=== PATIENT | male | born 1990 | race Caucasian/White ===

== ENCOUNTER → 2018-06-08 11:45 | Outpatient (CLI) | payer OTHER, SELFPAY ==
[2018-06-08 14:38] LABS: Cholesterol 194 mg/dL (200); High Density Lipoprotein 59 mg/dL; Thyroid Stim Hormone (TSH) 0.53 uIU/mL (0.358-3.74); Triglycerides 93 mg/dL; Very Low Density Lipoprotein 19 mg/dL (5-40)
== END ==
PROVIDERS: Visit Provider Family Medicine
DX: Z00.00 Encounter for general adult medical examination without abnormal findings (principal)
CPT/HCPCS: 36415; 80061; 84443

== ENCOUNTER → 2019-03-18 11:14 | Outpatient (CLI) | payer OTHER, SELFPAY ==
[2014-07-10 00:16] VITALS: BMI 20.9
[2019-03-18 11:33] LABS: Bacteria 0 SEEN /hpf (None Seen); Mucous, Urine 0 SEEN /hpf (<or=2+); Red Blood Cells-Urine 0 SEEN /hpf (0-5); Squamous Epithelial Cells - UA 0 SEEN /hpf (0-5)
[2019-03-18 13:17] LABS: Anion Gap 8 (5-15); BUN 11 mg/dL (7-18); BUN/Creat Ratio 12.1 RATIO (10-20); Calcium,Total 9.3 mg/dL (8.5-10.1); Chloride 105 mmol/L (98-107); Creatinine, Serum 0.91 mg/dL (0.70-1.30); EST Glomerular Filtration Rate 105 mL/min (>60); Est Glom Filt Rate - Afr Amer 127 mL/min (>60); Glucose 90 mg/dL (74-106); Magnesium 2.2 mg/dL (1.6-2.6); Potassium 3.8 mmol/L (3.5-5.1); Sodium Level 140 mmol/L (136-145); Thyroid Stim Hormone (TSH) 0.95 uIU/mL (0.358-3.74)
[2019-03-18 13:44] LABS: Color, Urine Yellow (Yellow); Glucose, Dipstick Normal (Normal); Ketone-Dipstick Negative (Negative); Leukocyte Esterase-Dipstick 25 /ul (Negative); Nitrite-Dipstick Negative (Negative); Occult Blood-Urine Negative /ul (Negative); Protein-Dipstick Negative (Negative); Specific Gravity, Urine 1.015 (1.002-1.030); Urine Bilirubin Dipstick Negative (Negative); Urine Clarity Clear (Clear); Urine Urobilinogen Normal (Normal)
[2019-03-18 13:56] LABS: HIV - WCH Non-Reactive (Nonreactive); White Blood Cells 0-5 SEEN /hpf (0-5)
[2019-03-18 15:36] LABS: Chlamydia Trachomatis by PCR Negative (Negative); Neisserai gonorrhoeae by PCR Negative (Negative); Probe Check PASS; Sample Adequacy Control PASS; Specimen Processing Control PASS
[2019-03-25 03:40] LABS: Rapid Plasmin Reagin (RPR) NONREACTIVE (NONREACTIVE)
== END ==
PROVIDERS: Family Provider Family Medicine; PCP Family Medicine; Referring Provider Family Medicine; Visit Provider Family Medicine
DX: F41.1 Generalized anxiety disorder (principal); Z11.3 Encounter for screening for infections with a predominantly sexual mode of transmission
CPT/HCPCS: 36415; 80048; 81001; 83735; 84439; 84443; 86592; 86703; 87491; 87591

== ENCOUNTER 2020-05-04 18:06 | Observation (INO) | payer OTHER, SELFPAY ==
[2020-05-04] VITALS (9 sets, daily range): BP systolic 130–151; BP diastolic 66–88; PULSE 62–98; RESP 16–18; TEMP 36.6–37.3; O2SAT 97–100; BMI 21.9; BMI 22.0
--- NOTE | 2020-05-04 13:30 | CT_ITS ---
We are attempting to reach an attending provider to discuss findings. An addendum with communication details will be sent when the communication is complete. STUDY: CT ABDOMEN AND PELVIS WITH CONTRAST REASON FOR EXAM: Male, 29 years old. RLQ PAIN X 4 DAYS WITH LOOSE STOOLS, ?APPY RADIATION DOSAGE (If Supplied By Facility): CTDIvol = ( 10.03 ) mGy, DLP = ( 495.67 ) mGycm TECHNIQUE: Transaxial images were obtained from the dome of the diaphragm to the symphysis pubis with oral contrast. Oral and amp; IV 100mL Isovue-300 was administered. Sagittal and coronal images were reconstructed. Individualized dose optimization techniques were used for this CT. COMPARISON: None. FINDINGS: The visualized lung bases are unremarkable. The visualized portions of the heart are within normal limits. There is decreased attenuation of the liver consistent with steatosis. There is hepatomegaly. Normal gallbladder and extrahepatic biliary system. Normal spleen. Normal pancreas. Normal right adrenal gland. 1.9 cm mass of the left adrenal gland. Normal right kidney. Normal left kidney. Normal visualized stomach. Normal small intestine. Normal colon. In the right lower quadrant there is an inflammatory process with fat stranding. There is a markedly thickened appendix with adjacent edema. Appendix measures 1 cm across. No evidence for perforation or abscess. No definite appendicolith. Normal abdominal aorta. Normal inferior vena cava. Normal retroperitoneum. Normal urinary bladder. Normal abdominal wall. Normal osseous structures. CT/Abdomen/Pelvis WITH Contrast IMPRESSION: Findings most consistent with uncomplicated appendicitis. No evidence for perforation or abscess. Fatty liver with hepatomegaly. 1.9 cm nodule of the left adrenal gland, suggest follow-up in 1 year. Electronically Signed: Dwain Cantu MD at 16:00 EDT , Service support ,
[2020-05-04 13:37] LABS: Erythrocyte Sedimentation Rate 34 mm/hr (0-15)
[2020-05-04 13:41] LABS: Absolute Lymphocyte Count 0.83 X10^3/uL (0.83-4.51); Absolute Neutrophil Count 5.2 X10^3/uL (2.0-7.7); Basophil# 0.02 X10^3/uL; Basophil% 0.3 % (0-1); Eosinophil# 0.03 X10^3/uL; Eosinophils% 0.4 % (0-5); Hematocrit 43.3 % (40-54); Hemoglobin 14.1 g/dL (13.0-16.5); Lymphocyte # 0.83 X10^3/ul (4.0); Mean Corp Hgb Conc 32.6 g/dL (32-36); Mean Corpuscular Hgb 29.6 pg (27.0-32.0); Mean Platelet Vol. 10.8 fl (6.2-12.0); Monocyte# 0.76 X10^3/uL; NRBC Flagged by Analyzer 0 % (0-5); Neutrophil # 5.24 X10^3/uL (2.7-7.7); Neutrophil % 76.2 % (47-70); Platelet Count 211 K/mm3 (150-450); RBC Distribution Width CV 13.3 % (11.6-14.6); RBC Distribution Width SD 44.6 fl (35.1-43.9); Red Blood Count 4.76 M/mm3 (4.6-6.2); White Blood Count 6.9 K/mm3 (4.4-11.0)
[2020-05-04 13:53] LABS: ALB/GLOB Ratio 0.9 RATIO (0.9-2.4); AST(SGOT) 11 U/L (15-37); Alanine Aminotransfer ALT/SGPT 23 U/L (16-61); Albumin, Serum 3.7 g/dL (3.2-5.0); Alkaline Phosphatase 93 U/L (45-117); Anion Gap 9 (5-15); BUN 9 mg/dL (7-18); BUN/Creat Ratio 12.3 RATIO (10-20); Calcium,Total 9.3 mg/dL (8.5-10.1); Chloride 103 mmol/L (98-107); Creatinine, Serum 0.73 mg/dL (0.70-1.30); EST Glomerular Filtration Rate 134 mL/min (>60); Est Glom Filt Rate - Afr Amer 163 mL/min (>60); Globulin 4.2 g/dL (2.2-4.2); Glucose 88 mg/dL (74-106); Potassium 3.7 mmol/L (3.5-5.1); Protein, Total 7.9 g/dL (6.4-8.2); Sodium Level 138 mmol/L (136-145)
--- NOTE | 2020-05-04 16:36 | PCM.HP.STD ---
Problem List (1) Acute appendicitis Status: Acute Qualifiers: Acute appendicitis type: unspecified acute appendicitis type Qualified Code(s): K35.80 - Unspecified acute appendicitis History of Present Illness Date of Admission: 05/04/20 The patient is a 29 year old M who presented to his PCP with abdominal pain. He says his pain is been going on for couple days. No nausea or vomiting. Pain is in his lower abdomen more localized to the right side. Past Medical History Allergies No Known Allergies Allergy (Verified 07/10/14 00:15) Home Medications: Ambulatory Orders Medication Instructions Recorded Potassium Chloride [K-Dur] 20 meq PO BID #4 tablet 07/10/14 Surgical History: no surgical history Smoking Status: Never smoker - *Family History Maternal History Items: No pertinent history Review of Systems Constitutional: Denies: Anorexia, Chills, Fever Eyes: Denies: Blurred vision Cardiovascular: Denies: Chest Pain Respiratory: Denies: Cough, Pleuritic Pain, Shortness of Breath Gastrointestinal: Reports: Abdominal Pain. Denies: Hematochezia, Nausea, Melena, Vomiting Genitourinary: Denies: Dysuria Skin: Denies: Jaundice Neurological: Denies: Balance problems Hematologic/ Lymphatic: Denies: Anemia VTE Information - Inpt Only VTE Present on Admission: No VTE Mechan Device Prophylaxis: SCD's Patient Problems: Active and Suspected Problems Acute appendicitis (Acute) - Physical Exam General: Alert, Oriented x3 Neck: No JVD Lungs: Normal air movement Cardiovascular: Regular rate, Regular Rhythm Abdomen: Soft, Non-Distended, Tender - Tender in the right lower quadrant with no guarding or rebound Musculoskeletal: No Muscle Wasting Neurological: Cranial nerves II-XII grossly intact Psych/Mental Status: Normal Affect Laboratory Results 05/04/20 13:24: WBC 6.9, RBC 4.76, Hgb 14.1, Hct 43.3, MCV 91.0, MCH 29.6, MCHC 32.6, RDW Std Deviation 44.6 H, RDW Coeff of Jocelyne 13.3, Plt Count 211, MPV 10.8, Immature Gran % (Auto) 0.100, Neut % (Auto) 76.2 H, Lymph % (Auto) 12.0 L, [place] % (Auto) 11.0 H, Eos % (Auto) 0.4, Baso % (Auto) 0.3, Absolute Neuts (auto) 5.2, Absolute Lymphs (auto) 0.83, Nucleated RBC % 0, ESR 34 H 05/04/20 13:24: Sodium 138, Potassium 3.7, Chloride 103, Carbon Dioxide 26.0, Anion Gap 9, BUN 9, Creatinine 0.73, Est GFR (MDRD) Af Amer 163, Est GFR (MDRD) Non-Af 134, BUN/Creatinine Ratio 12.3, Glucose 88, Calcium 9.3, Total Bilirubin 0.30, AST 11 L, ALT 23, Alkaline Phosphatase 93, C-React Prot Ext Range 88.70 H, Total Protein 7.9, Albumin 3.7, Globulin 4.2, Albumin/Globulin Ratio 0.9 Clinical Impression(s) from Imaging Studies Abdomen/Pelvis CT 05/04/20 13:30 IMPRESSION: Findings most consistent with uncomplicated appendicitis. No evidence for perforation or abscess. Fatty liver with hepatomegaly. 1.9 cm nodule of the left adrenal gland, suggest follow-up in 1 year. Electronically Signed: Dwain Cantu MD at 16:00 EDT , Service support , ADDENDUM: 05/04/20 1613 IMPRESSION: Findings most consistent with uncomplicated appendicitis. No evidence for perforation or abscess. Fatty liver with hepatomegaly. 1.9 cm nodule of the left adrenal gland, suggest follow-up in 1 year. N.B. : The above information has been verbally conveyed by Dwain Cantu MD to Dr. Lillian MD, on 05/04/2020 16:06:01 (ET). Electronically Signed: Dwain Cantu MD at 16:00 EDT , Service support , Current Medications Piperacillin Sod/Tazobactam (Sod 3.375 gm/ Sodium Chloride) 50 mls @ 12.5 mls/hr IV Q8 CAMILO Assessment/Plan All Active Problems Acute appendicitis (Acute) 29-year-old male with acute appendicitis 1. Patient has acute appendicitis per CT scan and a normal white count with left shift. I discussed acute appendicitis with the patient in detail. I discussed laparoscopic appendectomy with him as well. I discussed the risks including but not limited to bleeding, infection, injury to surrounding organ such as the bowel, ureter, bladder. Patient understands the risks and is well to proceed with surgery. We will order antibiotics and pre-surgery. We discussed the current risks associated with COVID-19. While it is understood that there is a community spread of COVID-19, the risk of flaca COVID-19 while at [facility] ([facility]) is very low; however, the risk cannot be completely mitigated because of the community spread of the disease. We discussed in detail the risk of exposure to and/or potential harm posed by the COVID-19 virus with having a surgery/procedure at this time versus the risk of delaying the surgery/procedure. It is not possible to know either the risk of delaying the surgery or procedure or chance of getting an infection with perfect accuracy, but a joint decision was made to proceed at this time with the scheduled surgery/procedure as indicated on the consent form. Patient was notified that we will need to comply with any screening or testing [facility] wishes to perform or that surgery may be delayed for any positive results. Leroy Pollock MD Pager: [facility] [address] [place] [address] [address] [place] [address] Office:
--- NOTE | 2020-05-04 17:00 | APP_PTH ---
PATIENT: LAURY ANDRE LOC: MS3 U#:[id number] AGE/SX: 29/M ROOM: [facility] [place] RE05/04/[address]: Dr. Leroy Pollock MD : 1990 BED: 1 DIS: 05/05/2020 SPEC #: [id number] RECD: 05/07/20 07:22 STATUS: CECILY HWANG #: [id number] VITALIY: 05/04/20 17:[address]: Leroy Pollock DEPT: SURGICAL PATHOLOGY RECD BY: Amy Tsang ENTERED: 05/07/20 10:16 SP TYPE: APPENDIX OTHR DR: Dr. Damien Cabello MD Tissues: Appendix, NOS Procedures: Surgery Specimen Level III HEADER OPERATION: Laparoscopic appendectomy PRE-OP DIAGNOSIS: Acute appendicitis TISSUE SUBMITTED: Appendix MICROSCOPIC DIAGNOSIS Appendix, appendectomy: Minimal acute appendicitis. Moderate acute and chronic periappendicitis with reactive changes. See comment. SJ:lilly 05/09/20 COMMENT The entire appendix is examined. Clinical correlation and appropriate follow up are necessary. Case has been reviewed in consultation with Dr. Johnson who concurs with the above diagnosis. IDC:AM MICROSCOPIC DESCRIPTION Slides are reviewed. GROSS DESCRIPTION Received is one container labeled with the patient's name and designated appendix. The specimen consists of a C-shaped appendix measuring 8 cm in length and up to 1 cm in diameter. The serosa is congested. No obvious perforation is identified. The lumen contains liquified fecal material. No fecalith is identified. Pastry Baker sections are submitted in one cassette. / BECK:lilly 05/07/20 The rest of the appendix is submitted in three more cassettes, 2-4. / BECK:lilly 05/08/20 TC:2 CPT: 95107
[2020-05-04] MEDS: Bupiv/Epi 0.25% 30 ML Vial (17:34)
--- NOTE | 2020-05-04 18:08 | OP.PCM_ITS ---
Problem List (1) Acute appendicitis Status: Acute Qualifiers: Acute appendicitis type: unspecified acute appendicitis type Qualified Code(s): K35.80 - Unspecified acute appendicitis Report of Operation Date of Procedure: 05/04/20 Pre-Operative Diagnosis: Acute appendicitis Post-Operative Diagnosis: Same Surgery/Procedure Performed:: Laparoscopic appendectomy Description of Surgical Findings:: Inflamed appendix, wound class III Specimen's removed: Appendix Description of Procedure: The patient was brought into the operating room and general anesthesia was induced. The left arm was tucked and the abdomen was prepped and draped in usual sterile fashion. A small midline incision was made superior to the umbilicus and deepened to the level of the fascia. The fascia was elevated and incised. The peritoneum was also elevated and incised. A finger sweep was performed and a balloon trocar was placed into the abdomen and inflated. The abdomen was insufflated to 15 mmHg and the camera was inserted and the abdomen was inspected for any injuries upon entering the abdomen. There were none. The patient was placed in Trendelenburg position and a 5 mm ports placed in the left lower quadrant and suprapubic areas under direct visualization. Next using atraumatic bowel graspers the appendix was identified. The appendix was grasped and elevated and Enseal was used to take down the mesoappendix. A stapler was used to come across the base of the appendix. The appendix was then placed in Endo Catch bag and removed through the umbilical incision. The staple line was inspected and found to be hemostatic and intact. The 2 5 mm ports are removed under direct visualization. The balloon trocar was deflated and removed and all the air was removed from the abdomen. The umbilical incision fascia was closed with an 0 Vicryl [id number] suture. The incisions were then irrigated with saline and dried. Local anesthetic was injected into the incision sites. The skin incisions were then closed with interrupted 4-0 Monocryl suture and Steri- Strips. Bandages were applied and the patient was awoken and taken to PACU in stable condition. Patient tolerated the procedure well. - Admit VTE Documentation VTE Mechan Device Prophylaxis: SCD's
[2020-05-05] MEDS: 0.9% Normal Saline 1,000 ML 60 ML IV (00:51)
[2020-05-05 05:45] VITALS: BP 120/68; PULSE 65; RESP 18; TEMP 37.1; O2SAT 100
[2020-05-05] MEDS: Morphine 2 MG/ML Syringe IV (06:15)
--- NOTE | 2020-05-05 07:38 | PCM.PN.SRG ---
Patient Problems: Active and Suspected Problems Acute appendicitis (Acute) Subjective: Patient is doing well and tolerating a diet. - Physical Exam Vitals/I&O's: Vital Signs Temp Pulse Resp BP Pulse Ox 98.7 F 65 18 120/68 100 05/05/20 05:45 05/05/20 05:45 05/05/20 05:45 05/05/20 05:45 05/05/20 05:45 Oxygen Delivery Method Room Air Weight: 162 lb 3.105 oz Body Mass Index (BMI) 21.9 Intake and Output for Last 24 Hours 05/03/20 05/04/20 05/05/20 23:59 23:59 23:59 Intake Total 66.875 / 266.875 350 / 350 Output Total 950 / 950 Balance 66.875 / -233.125 -600 / -600 General: Alert, Oriented x3 Lungs: Normal air movement Cardiovascular: Regular rate, Regular Rhythm Abdomen: Soft, Non Tender, Non-Distended Laboratory Results 05/04/20 13:24: WBC 6.9, RBC 4.76, Hgb 14.1, Hct 43.3, MCV 91.0, MCH 29.6, MCHC 32.6, RDW Std Deviation 44.6 H, RDW Coeff of Jocelyne 13.3, Plt Count 211, MPV 10.8, Immature Gran % (Auto) 0.100, Neut % (Auto) 76.2 H, Lymph % (Auto) 12.0 L, Power % (Auto) 11.0 H, Eos % (Auto) 0.4, Baso % (Auto) 0.3, Absolute Neuts (auto) 5.2, Absolute Lymphs (auto) 0.83, Nucleated RBC % 0, ESR 34 H 05/04/20 13:24: Sodium 138, Potassium 3.7, Chloride 103, Carbon Dioxide 26.0, Anion Gap 9, BUN 9, Creatinine 0.73, Est GFR (MDRD) Af Amer 163, Est GFR (MDRD) Non-Af 134, BUN/Creatinine Ratio 12.3, Glucose 88, Calcium 9.3, Total Bilirubin 0.30, AST 11 L, ALT 23, Alkaline Phosphatase 93, C-React Prot Ext Range 88.70 H, Total Protein 7.9, Albumin 3.7, Globulin 4.2, Albumin/Globulin Ratio 0.9 Current Medications Acetaminophen (Tylenol) 650 mg PO Q4H PRN PRN PRN Reason: Pain or Fever Bupropion HCl (Wellbutrin Xl) 150 mg PO DAILY [facility] Sodium Chloride () 1,000 mls @ 60 mls/hr IV .[id number] [facility] Last Admin: 05/05/20 00:51 Dose: 60 mls/hr Documented by: Morphine Sulfate () 2 - 4 mg IV Q2H PRN PRN PRN Reason: Pain Score 4-10/10 Last Admin: 05/05/20 06:15 Dose: 2 mg Documented by: Morphine Sulfate () 2 - 4 mg IV Q2H PRN PRN PRN Reason: Pain Score 4-10/10 Ondansetron HCl (Zofran) 4 mg IV Q6H PRN PRN PRN Reason: NAUSEA Oxycodone HCl (Oxyir) 5 - 10 mg PO Q4H PRN PRN PRN Reason: Pain Score 4-10/10 Sodium Chloride () 10 - 40 ml IV UD PRN PRN Reason: SALINE FLUSH Medical Necessity - Tobacco Use Smoking Status: Current every day smoker Assessment/Plan All Active Problems Acute appendicitis (Acute) 29-year-old male status post laparoscopic appendectomy for acute appendicitis 1. Patient is doing well today. If he tolerates a diet I will discharge him home. I advised him to follow-up in 1 to 2 weeks and take ibuprofen/Tylenol for pain. Leroy Pollock MD Pager: [facility] [address] [place] [address], [address] [place] [address] Office:
--- NOTE | 2020-05-05 07:39 | DCINST_ITS ---
Discharge Diet: Light diet - advance as tolerated Discharge Activity: May Shower Lifting Restrictions: 20 lbs for 2 weeks Call your doctor if your incision/area has: Continuous Slow Oozing, Sudden Increased Bleeding, Increased Pain/ Swelling, Increased Redness, Foul Smelling Discharge Call your doctor if you observe: Fever of 101 or Higher Suture Line Care: Avoid Pulling/Pushing, Avoid Pinching/Bending Additional Dressing/Incision Instructions:: Keep dressing clean and dry. Change or remove dressing in 1 day. Leave steri strips for 1 week. May protect with a gauze bandaid. Medications to take at Discharge Bupropion HCl [Bupropion Xl] 150 mg PO DAILY 05/04/20 Acetaminophen [Tylenol Tablet] 650 mg PO Q4H PRN PRN tablet 05/05/20 Allergies/Adverse Reactions: Allergies No Known Allergies Allergy (Verified 07/10/14 00:15) Primary Care Physician: Damien Cabello MD [Primary Care Provider] - Test Results: Test results from this visit will be discussed in further detail at your follow- up appointment, if applicable. Please Follow Up With: Leroy Pollock MD When: Please call to schedule 2 week follow up appointment. [phone]
[2020-05-05 08:13] VITALS: BP 124/66; PULSE 74; RESP 16; TEMP 36.9; O2SAT 100
--- NOTE | 2020-05-05 08:13 | NURSING ---
Ordered breakfast. Saline lock out at this time.
--- NOTE | 2020-05-05 08:19 | NURSING ---
Ordered breakfast at this time.
--- NOTE | 2020-05-05 09:55 | NURSING ---
pt ate breakfast, finished at 0855. No Nausea, No abd pain. PT only wants to take tylenol when he goes home. Pt VS stable. pt walked jernigan.
== END 2020-05-05 10:00 | disposition home or self-care (01) ==
LOC: SDC 05-07 09:40 → MS3 05-07 09:40
PROVIDERS: Admitting Provider Surgery; PCP Family Medicine; Referring Provider Family Medicine; Visit Provider Surgery
PROC: 0DTJ4ZZ Resection of Appendix, Percutaneous Endoscopic Approach (ICD-10-PCS; CPT 44970; principal; 2020-05-04 17:00)
DX: K35.80 Unspecified acute appendicitis (principal)
CPT/HCPCS: 44970; 36415; 74177; 80053; 85025; 85652; 86140; 88304; 96374; 99218; 99406; J7030; J7120; Q9967; A4216; C1760; G0378; G0379; J2405

== ENCOUNTER → 2020-10-23 16:48 | Outpatient (CLI) | payer OTHER, SELFPAY ==
[2020-05-04 19:50] VITALS: BMI 21.9
== END ==
PROVIDERS: PCP Family Medicine; Visit Provider Registered Nurse
DX: Z20.828 Contact with and (suspected) exposure to other viral communicable diseases (principal)
CPT/HCPCS: 87635; U0003

== ENCOUNTER → 2022-05-01 | Outpatient (CLI) | payer BC, SELFPAY ==
[2022-05-01 15:41] LABS: ALB/GLOB Ratio 1.3 RATIO (0.9-2.4); AST(SGOT) 10 U/L (15-37); Alanine Aminotransfer ALT/SGPT 27 U/L (16-61); Albumin, Serum 4.1 g/dL (3.2-5.0); Alkaline Phosphatase 65 U/L (45-117); Anion Gap 5 (5-15); BUN 9 mg/dL (7-18); BUN/Creat Ratio 10.7 RATIO (10-20); CRP < 2.90 mg/L (0.0-3.0); Calcium,Total 9.4 mg/dL (8.5-10.1); Chloride 106 mmol/L (98-107); Creatinine, Serum 0.84 mg/dL (0.70-1.30); EST Glomerular Filtration Rate 113 mL/min (>60); Est Glom Filt Rate - Afr Amer 136 mL/min (>60); Globulin 3.2 g/dL (2.2-4.2); Glucose 126 mg/dL (74-106); Potassium 3.5 mmol/L (3.5-5.1); Protein, Total 7.3 g/dL (6.4-8.2); Sodium Level 137 mmol/L (136-145); Thyroid Stim Hormone (TSH) 0.28 uIU/mL (0.358-3.74)
[2022-05-01 17:56] LABS: Absolute Lymphocyte Count 0.79 X10^3/uL (0.83-4.51); Absolute Neutrophil Count 3.4 X10^3/uL (2.0-7.7); Basophil# 0.03 X10^3/uL; Basophil% 0.6 % (0-1); Eosinophil# 0.06 X10^3/uL; Eosinophils% 1.3 % (0-5); Hematocrit 45.2 % (40-54); Hemoglobin 15.4 g/dL (13.0-16.5); Lymphocyte # 0.79 X10^3/ul (0.83-4.51); Lymphocyte % 16.9 % (19-41); Mean Corp Hgb Conc 34.1 g/dL (32-36); Mean Corpuscular Hgb 29.6 pg (27.0-32.0); Mean Corpuscular Volume 86.8 fL (80-94); Mean Platelet Vol. 11.5 fl (6.2-12.0); Monocyte# 0.35 X10^3/uL; Monocyte% 7.5 % (0-10); NRBC Flagged by Analyzer 0 % (0-5); Neutrophil # 3.43 X10^3/uL (2.7-7.7); Neutrophil % 73.5 % (47-70); Platelet Count 239 K/mm3 (150-450); RBC Distribution Width CV 13.4 % (11.6-14.6); RBC Distribution Width SD 42.2 fl (35.1-43.9); Red Blood Count 5.21 M/mm3 (4.6-6.2); White Blood Count 4.7 K/mm3 (4.4-11.0)
[2022-05-01 18:29] LABS: Erythrocyte Sedimentation Rate 4 mm/hr (0-20)
[2022-05-02 14:12] LABS: T4 Free Direct 1.16 ng/dL (0.76-1.46)
== END | disposition home or self-care (01) ==
LOC: MTLAB 12:36
PROVIDERS: PCP Family Medicine; Referring Provider Family Medicine; Visit Provider Family Medicine
DX: R19.8 Other specified symptoms and signs involving the digestive system and abdomen (principal); K27.9 Peptic ulcer, site unspecified, unspecified as acute or chronic, without hemorrhage or perforation
CPT/HCPCS: 36415; 80053; 84439; 84443; 85025; 85652; 86140

== ENCOUNTER → 2022-05-02 | Outpatient (CLI) | payer BC, SELFPAY ==
[2022-05-15 16:37] LABS: H. PYLORI STOOL AG Negative (Negative); Pancreatic Elastase, Fecal 268 (>200)
== END | disposition home or self-care (01) ==
PROVIDERS: PCP Family Medicine; Referring Provider Family Medicine; Visit Provider Family Medicine
DX: R19.8 Other specified symptoms and signs involving the digestive system and abdomen (principal); K27.9 Peptic ulcer, site unspecified, unspecified as acute or chronic, without hemorrhage or perforation
CPT/HCPCS: 82653; 83986

== ENCOUNTER → 2022-07-25 | Outpatient (CLI) | payer BC, SELFPAY ==
[2022-07-25 15:56] LABS: Cholesterol 227 mg/dL (200); High Density Lipoprotein 69 mg/dL; T4 Free Direct 0.92 ng/dL (0.76-1.46); Thyroid Stim Hormone (TSH) 0.46 uIU/mL (0.358-3.74); Triglycerides 98 mg/dL; Very Low Density Lipoprotein 20 mg/dL (5-40)
[2022-07-29 13:38] LABS: Thyroglobulin Antibody < 1.0 IU/mL (0.0-0.9); Thyroid Peroxidase AB 9 IU/mL (0-34)
== END | disposition home or self-care (01) ==
PROVIDERS: PCP Family Medicine; Referring Provider Family Medicine; Visit Provider Family Medicine
DX: Z00.00 Encounter for general adult medical examination without abnormal findings (principal); R79.89 Other specified abnormal findings of blood chemistry
CPT/HCPCS: 36415; 80061; 84439; 84443; 86376; 86800

== ENCOUNTER → 2022-08-29 | Outpatient (CLI) | payer BC, SELFPAY ==
[2022-08-29 10:55] LABS: Lyme Ab Screen Interpretation REF LAB
[2022-08-29 11:38] LABS: Erythrocyte Sedimentation Rate 7 mm/hr (0-20)
[2022-08-29 11:49] LABS: Hemoglobin A1c 5.2 % (3.8-5.6)
[2022-08-29 12:14] LABS: ALB/GLOB Ratio 1.2 RATIO (0.9-2.4); AST(SGOT) 14 U/L (15-37); Alanine Aminotransfer ALT/SGPT 27 U/L (16-61); Albumin, Serum 4.4 g/dL (3.2-5.0); Alkaline Phosphatase 80 U/L (45-117); Anion Gap 7 (5-15); BUN 10 mg/dL (7-18); BUN/Creat Ratio 12.4 RATIO (10-20); CRP < 2.90 mg/L (0.0-3.0); Calcium,Total 9.4 mg/dL (8.5-10.1); Chloride 108 mmol/L (98-107); Creatinine, Serum 0.81 mg/dL (0.70-1.30); EST Glomerular Filtration Rate 117 mL/min (>60); Est Glom Filt Rate - Afr Amer 142 mL/min (>60); Globulin 3.6 g/dL (2.2-4.2); Glucose 97 mg/dL (74-106); Potassium 3.9 mmol/L (3.5-5.1); Sodium Level 139 mmol/L (136-145)
[2022-09-01 16:09] LABS: Endomysial Antibody IgA Negative (Negative)
[2022-09-01 18:49] LABS: Immunoglobulin A 145 mg/dL (90-386); t-Transglutaminase IgA <2 U/mL (0-3)
[2022-09-02 14:29] LABS: Anti-Centromere B Ab <0.2 AI (0.0-0.9); Anti-Chromatin <0.2 AI (0.0-0.9); Anti-Jo <0.2 AI (0.0-0.9); Anti-Scleroderma-70 AB <0.2 AI (0.0-0.9); RNP Ab <0.2 AI (0.0-0.9); SJOGREN'S Anti-SS-A test < 0.2 AI (0.0-0.9); SJOGREN'S Anti-SS-B test < 0.2 AI (0.0-0.9); Smith Ab <0.2 AI (0.0-0.9)
[2022-09-02 16:08] LABS: Anti-dsDNA Ab <1 IU/mL (0-9)
[2022-09-07 13:06] LABS: Albumin 4.5 g/dL (2.9-4.4); Alpha-1-Globulins 0.2 g/dL (0.0-0.4); Alpha-2-Globulins 0.7 g/dL (0.4-1.0); Cytoplasmic Ab (C-ANCA) <1:20 titer (Neg:<1:20); Immunoglobulin A 149 mg/dL (90-386); Immunoglobulin G 783 mg/dL (603-1613); Immunoglobulin M 137 mg/dL (20-172); PROEL- TOTAL PROTEIN 7.5 g/dL (6.0-8.5)
[2022-09-08 17:45] LABS: CMV Antibody IgG < 0.60 U/mL (0.00-0.59); EBV Acute VCA IgM < 36.0 U/mL (0.0-35.9); EBV Nuclear Antigen IgG 83.3 U/mL (0.0-17.9); Immunoglobulin E 28 IU/mL (6-495); Lyme Scn Total Ab w/Rflx Negative (Negative); Perinuclear Ab (P-ANCA) <1:20 titer (Neg:<1:20)
== END | disposition home or self-care (01) ==
LOC: LAB 10:51
PROVIDERS: PCP Family Medicine; Referring Provider Internal Medicine Gastroenterology; Visit Provider Internal Medicine Gastroenterology
DX: R19.7 Diarrhea, unspecified (principal)
CPT/HCPCS: 36415; 80053; 82784; 82785; 83036; 83516; 84165; 85652; 86140; 86225; 86235; 86255; 86256; 86334; 86618; 86644; 86664; 86665

== ENCOUNTER → 2022-09-02 | Outpatient (CLI) | payer BC, SELFPAY ==
[2022-09-16 18:33] LABS: Calprotectin, Stool <16 ug/g (0-120); Fats, Neutral Normal (.); Fats, Total Normal (.)
== END | disposition home or self-care (01) ==
LOC: LAB 16:41
PROVIDERS: PCP Family Medicine; Visit Provider Internal Medicine Gastroenterology
DX: R19.7 Diarrhea, unspecified (principal); K58.9 Irritable bowel syndrome, unspecified
CPT/HCPCS: 82705; 83630; 83993; 87493; 87506

== ENCOUNTER → 2022-12-03 | Outpatient (CLI) | payer BC, SELFPAY ==
--- NOTE | 2022-12-03 12:35 | NM_ITS ---
CLINICAL: 32-year-old male with history of abdominal pain and bloating. SEMI-SOLID PHASE 99m Tc SULFUR COLLOID GASTRIC EMPTYING STUDY COMPARISON: None available FINDINGS: The patient was administered 1.0 mCi of 99m Tc sulfur colloid mixed with oatmeal and consumed per os. Image acquisitions in the anterior-posterior projections were obtained for 60 minutes. There is prompt visualization of the stomach. There is no gastroesophageal reflux identified. The T ? linear fit was calculated to be 42.10 minutes, (Normal: 12-56 minutes). NM/Gastric Emptying Study IMPRESSION: 1. NORMAL 99m Tc sulfur colloid semi-solid phase (oatmeal) gastric emptying imaging examination. A. There is normal and preserved semi-solid phase gastric emptying compared to normal controls. (Jean Marie et al, J Nucl Med Tech 38: 186, 2010). Electronically Signed: Alfa King, at 19:57 EST ,
== END | disposition home or self-care (01) ==
PROVIDERS: PCP Family Medicine; Referring Provider Internal Medicine Gastroenterology; Visit Provider Internal Medicine Gastroenterology
DX: K58.9 Irritable bowel syndrome, unspecified (principal)
CPT/HCPCS: 78264; A9541

== ENCOUNTER → 2022-12-05 | Outpatient (CLI) | payer BC, SELFPAY ==
--- NOTE | 2022-12-05 09:39 | US_ITS ---
STUDY: ABDOMINAL ULTRASOUND - RIGHT UPPER QUADRANT REASON FOR VISIT: Male, 32 years old hepatomegaly TECHNIQUE: Ultrasound evaluation of the right upper quadrant was performed with real-time and static cohen-scale imaging. TECHNICAL QUALITY: Adequate. COMPARISON: None. FINDINGS: Liver: The liver measures 17.2 cm. There is normal echogenicity of the liver. The bile ducts are within normal limits. There is hepatic color flow. The direction of portal flow is hepatopetal. There is no demonstrated mass lesion. Gallbladder: Normal distended gallbladder. The gallbladder wall measures 2 mm. There is a negative sonographic Dominguez''s sign. There is no pericholecystic fluid. There are no gallstones. Common Bile Duct (C.B.D.): The common bile duct measures 3 mm. Pancreas: Normal size of the head, body and tail of the pancreas. There is normal echogenicity of the pancreas. There is no demonstrated pancreatic mass or cyst. Right Kidney: Normal size of the right kidney. The right kidney measures 11.5 cm x 5.7 cm x 4.9 cm. Normal renal cortex. The right cortex measures 1.5 cm. There is no demonstrated renal mass or cyst. There is no right hydronephrosis. US/Abdomen Limited IMPRESSION: Normal right upper quadrant ultrasound examination. Electronically Signed: Harsha Jackson MD at 13:57 EST ,
--- NOTE | 2022-12-05 09:39 | US_ITS ---
STUDY: ABDOMINAL ULTRASOUND - ELASTOGRAPHY REASON FOR VISIT: Male, 32 years old. IBS. TECHNIQUE: Liver stiffness measurements were obtained on a [employer]se RS 85 ultrasound machine using a CA 1-7 probe following the SRU guidelines. 3 measurements were obtained using a 2-D-SWE method. The IQR/M was 16% suggesting a quality data set. TECHNICAL QUALITY: Adequate. COMPARISON: Comparison is made with prior study done earlier in the day. FINDINGS: Liver: There is no demonstrated mass lesion. Median liver stiffness measured 4.6 kPa. US/Elastography Parenchyma/Organ IMPRESSION: Liver stiffness measures 4.6 kPa compatible with F0-F1 (Normal to mild liver fibrosis) Metavir score. Electronically Signed: Harsha Jackson MD at 13:58 EST ,
== END | disposition home or self-care (01) ==
PROVIDERS: PCP Family Medicine; Visit Provider Internal Medicine Gastroenterology
DX: K58.9 Irritable bowel syndrome, unspecified (principal)
CPT/HCPCS: 76705; 76981

== ENCOUNTER → 2023-01-13 | Outpatient (CLI) | payer BC, SELFPAY ==
[2023-01-13 15:30] LABS: Hematocrit 48.1 % (40-54); Mean Corp Hgb Conc 33.3 g/dL (32-36); Mean Corpuscular Hgb 29.5 pg (27.0-32.0); Mean Corpuscular Volume 88.6 fL (80-94); Mean Platelet Vol. 11.4 fl (6.2-12.0); Platelet Count 262 K/mm3 (150-450); RBC Distribution Width CV 13.2 % (11.6-14.6); Red Blood Count 5.43 M/mm3 (4.6-6.2); White Blood Count 4.6 K/mm3 (4.4-11.0)
[2023-01-13 16:37] LABS: ALB/GLOB Ratio 1.4 RATIO (0.9-2.4); AST(SGOT) 14 U/L (15-37); Alanine Aminotransfer ALT/SGPT 28 U/L (16-61); Albumin, Serum 4.5 g/dL (3.2-5.0); Alkaline Phosphatase 74 U/L (45-117); Anion Gap 9 (5-15); BUN 10 mg/dL (7-18); BUN/Creat Ratio 12.6 RATIO (10-20); Chloride 103 mmol/L (98-107); Creatinine, Serum 0.79 mg/dL (0.70-1.30); EST Glomerular Filtration Rate 120 mL/min (>60); Est Glom Filt Rate - Afr Amer 145 mL/min (>60); Globulin 3.3 g/dL (2.2-4.2); Glucose 96 mg/dL (74-106); Lipase 88 U/L (73-393); Potassium 3.7 mmol/L (3.5-5.1); Protein, Total 7.8 g/dL (6.4-8.2); Sodium Level 136 mmol/L (136-145)
[2023-01-15 18:49] LABS: Haptoglobin 168 mg/dL (17-317)
[2023-01-18 01:06] LABS: Beef <0.10 kU/L (Class 0); Corn <0.10 kU/L (Class 0); Egg, Whole <0.10 kU/L (Class 0); Milk (Cow) <0.10 kU/L (Class 0); Peanut <0.10 kU/L (Class 0); Pork <0.10 kU/L (Class 0); Soybean <0.10 kU/L (Class 0); Wheat <0.10 kU/L (Class 0)
[2023-01-18 14:04] LABS: Chocolate <0.10 kU/L (Class 0)
== END | disposition home or self-care (01) ==
LOC: MTLAB 12:48
PROVIDERS: PCP Family Medicine; Referring Provider Family Medicine; Visit Provider Family Medicine
DX: R19.4 Change in bowel habit (principal); R92.1 Mammographic calcification found on diagnostic imaging of breast
CPT/HCPCS: 36415; 80053; 83010; 83690; 85027; 86003; 86005

== ENCOUNTER → 2023-01-14 | Outpatient (CLI) | payer BC, SELFPAY ==
[2023-01-21 15:10] LABS: Pancreatic Elastase, Fecal 277 (>200)
== END | disposition home or self-care (01) ==
LOC: LAB 16:24
PROVIDERS: PCP Family Medicine; Visit Provider Family Medicine
DX: R19.4 Change in bowel habit (principal); K92.1 Melena
CPT/HCPCS: 82653; 87177; 87209

== ENCOUNTER → 2023-01-15 | Outpatient (CLI) | payer BC, SELFPAY | END | disposition home or self-care (01) | LOC: LABSPEC 16:10 | PROVIDERS: PCP Family Medicine; Visit Provider Family Medicine | DX: R19.4 Change in bowel habit (principal); K92.1 Melena | CPT/HCPCS: 87177; 87209 ==

== ENCOUNTER → 2023-01-19 | Outpatient (CLI) | payer BC, SELFPAY | END | disposition home or self-care (01) | LOC: LAB 16:12 | PROVIDERS: PCP Family Medicine; Referring Provider Family Medicine; Visit Provider Family Medicine | DX: R19.4 Change in bowel habit (principal); K92.1 Melena | CPT/HCPCS: 87177; 87209 ==

== ENCOUNTER 2023-02-20 08:56 | Day surgery (SDC) | payer BC, SELFPAY ==
[2023-02-20 09:12] VITALS: BP 142/81; PULSE 91; RESP 16; TEMP 36.8; O2SAT 100; BMI 23.3
[2023-02-20] MEDS: Lactated Ringers 1,000 ML 15 ML IV (09:14)
--- NOTE | 2023-02-20 09:51 | HP.PCM_ITS ---
History and Physical Date of Admission: 02/20/23 Intake Vital Signs ? 05/01/2212:33 01/28/2315:05 Height 5 ft 11 in 6 ft Weight: ? 179 lb 2 oz BMI ? 24.3 BP ? 134/81 H Blood Pressure Location ? Rt radial Position ? Sitting Respiration ? 16 Pulse ? 80 Pulse Source ? Monitor Pulse Oximetry (%) ? 99 Oxygen Delivery Method ? room air Intake Visit Reasons:?UPPER & LOWER FOR LOOSE STOOL & RECURRENT MELENA Chief Complaint: Loose stool/recurrent melena Senior Clinical Data Manager Required: No Is patient in pain?: No Allergies No Known Allergies Allergy (Verified 01/28/23 15:07) Medications acetaminophen 325 mg tablet 650 mg PO Q4H PRN PRN Pain Or Fever 05/05/20 [Rx Confirmed 01/28/23] PFSH Medical History?(Updated 01/28/23 @ 15:[address] Leroy Pollock MD) Acute appendicitis Change in bowel function Diarrhea Hemorrhoids Herpes simplex infection of eye Nausea Peptic ulcer disease Surgical History?(Updated 01/28/23 @ 15:03 by Helen Rm) History of appendectomy (~04/2020) Family History?(Updated 01/28/23 @ 15:04 by Helen Rm) Grandfather Heart disease Social History?(Updated 01/28/23 @ 15:05 by Helen Rm) Smoking Status:? Heavy Smoker (>10/day) alcohol intake:? current details:? 5-6 beers/day HPI HPI HPI: Patient is a 32-year-old male here with several issues.? Patient has not been seen by GI but has never had scopes.? He says that occasionally he has very dark stools which are loose.? He says that if he has normal stools they are flat and wide.? He also has reflux.? He has been started on a PPI. ROS General General: No weight change, appetite, fatigue, colon cancer, breast cancer or weakness HEENT HEENT: No difficulty swallowing, eye injury, eye surgery, swollen glands or hoarseness Endo Endocrine: No thyroid disease, diabetes mellitus, thyroid cancer, Hair loss, heat intolerance or cold intolerance Skin Skin: No rash or changing moles Breast Breast: No left breast lump, right breast lump, nipple discharge, breast pain, abnormal mammogram, abnormal US or breast enlargement Musc Musculoskeletal: No back problems, arthritis, rheumatoid arthritis, gout or joint pain Cardio Cardiovascular: No murmur, pacemaker, heart disease, atrial fibrillation, high blood pressure, heart attack, heart stent, palpitations, shortness of breat with exertion or chest pain Psych Psychiatric: Yes anxiety; No depression or hearing voices Resp Respiratory: No shortness of breath, No sleep apnea, No cough, No COPD, No asthma, No emphysema and No wheezing Gastro Gastrointestinal: Yes abdominal pain, Yes nausea or vomiting, Yes diarrhea, Yes constipation, No blood in stool, Yes acid reflux, Yes hemorrhoids, No ulcers, No gallbladder problem and Yes black,tarry stools Jeremy Hematologic: No blood thinners, No blood disorders, No bleeding, No anemia and No blood clots Neuro Neurologic: No system reviewed and no additional complaints, except as documented, No as per HPI, No abnormal gait, No abnormal hearing, No abnormal movements, No abnormal speech, No behavioral changes, No burning sensations, No confusion, No convulsions, No disequilibrium, No dizziness, No localized weakness, No frequent falls, No headache(s), No lack of coordination, No loss of vision, No memory loss, No numbness, No other visual disturbances, No radicular pain, No restless legs, No sensory deficit, No syncope, No tingling, No tremor(s ), No weakness and No other Exam Const General: cooperative Orientation: alert and oriented x3 HENMT Head: normal to inspection Neck Neck: normal visual inspection and full ROM Chest Chest palpation & inspection: normal inspection of the chest Resp Effort & Inspection: normal respiratory effort Auscultation: clear to auscultation bilaterally Cardio Rate: regular rate Rhythm: regular rhythm GI Inspection: non-distended Palpation: soft and nontender Skin General: no rashes or lesions noted Neuro General: patient alert and patient oriented x3 Extrem General: full ROM Psych Appearance: grossly normal Mental Status: mental status grossly normal Assessment and Plan Assessment and Plan (1) GERD (gastroesophageal reflux disease): ?Status:?Acute ?Qualifiers: ?Esophagitis presence:?esophagitis presence not specified? Qualified Code(s):?K21.9 - Gastro-esophageal reflux disease without esophagitis (2) Melena: ?Status:?Acute ? ? ? Orders: Orders Colonoscopy Today ? ? EGD Today ? ? Plan The patient has been having GERD and black tarry stools.? Patient was seen by GI but no scopes were performed.? Patient was sent here for EGD and colonoscopy.? I discussed both with him. I explained endoscopy in detail to the patient.? I explained the risks including but not limited to stroke or heart attack with anesthesia, perforation of the GI tract, bleeding, infection.? I explained that any of these could necessitate further emergency surgery.? The patient understands and all questions were answered sufficiently.? The patient wishes to proceed with procedure. Leroy Pollock MD Pager: [facility] [address] [place] [address], [address] [place] [address] Office: I have examined the patient and the H&P has been reviewed. There are no clinical changes since date of exam.
--- NOTE | 2023-02-20 10:15 | EGD_PTH ---
PATIENT: LAURY ANDRE LOC: EN U#:[id number] AGE/SX: 32/M ROOM: RE02/20/[address]: Dr. Leroy Pollock MD : 1990 BED: DIS: 02/20/2023 SPEC #: [id number] RECD: 02/20/23 12:19 STATUS: CECILY REDee Dee #: [id number] VITALIY: 02/20/23 10:[address]: Leroy Pollock DEPT: SURGICAL PATHOLOGY RECD BY: Leandra Mills ENTERED: 02/20/23 12:20 SP TYPE: EGD BIOPSY OTHR DR: Dr. Damien Cabello MD Tissues: A - Gastric mucous membrane B - Stomach, NOS Procedures: Special Stain Group II Surgery Specimen Level IV Alcian Blue/PAS (control) HEADER OPERATION: Colonoscopy, EGD (MAC), biopsy PRE-OP DIAGNOSIS: Melena, GERD TISSUE SUBMITTED: A ? Antral biopsy ? H. pylori and path, B - Gastroesophageal junction biopsy MICROSCOPIC DIAGNOSIS A. Antral biopsy: Mild gastritis. See microscopic description and comment. B. Gastroesophageal junction, biopsy: Fragments of gastroesophageal mucosa with focal intestinal metaplasia (goblet cell metaplasia), consistent with Roa's esophagus. Chronic inflammation. Negative for dysplasia. See comment. SJ:lilly 02/23/2023 COMMENT A. The results of immunohistochemistry for Helicobacter pylori will be reported separately ([id number]). B. Immunohistochemistry ([id number]) for P53 and Ki-67 will be performed and results will be reported separately. Alcian blue/PAS stain with matched control is used in the evaluation of the specimen. MICROSCOPIC DESCRIPTION Slides are reviewed. A. The specimen shows fragments of gastric mucosa with chronic inflammatory cell infiltrates in the lamina propria consisting of lymphocytes and plasma cells, consistent with mild chronic gastritis. GROSS DESCRIPTION A - Received in fixative is one container labeled with the patient's name and designated antral biopsy. The specimen consists of two irregular fragments of light garg soft tissue that in aggregate measure 0.6 x 0.3 x 0.1 cm. The specimen is totally submitted in one cassette. B - Received in fixative is one container labeled with the patient's name and designated GE junction biopsy. The specimen consists of two irregular fragments of light garg soft tissue that in aggregate measure 0.6 x 0.3 x 0.1 cm. The specimen is totally submitted in one cassette. / SJ:rg 02/20/2023 TC:3 CPT: 27283 x2, 44163
--- NOTE | 2023-02-20 10:15 | IMM_PTH ---
PATIENT: LAURY ANDRE LOC: EN U#:[id number] AGE/SX: 32/M ROOM: RE02/20/[address]: Dr. Leroy Pollock MD : 1990 BED: DIS: 02/20/2023 SPEC #: [id number] RECD: 02/20/23 12:33 STATUS: CECILY REDee Dee #: [id number] VITALIY: 02/20/23 10:[address]: Leroy Pollock DEPT: IMMUNOHISTOCHEMISTRY RECD BY: Gina Bowman ENTERED: 02/20/23 12:33 SP TYPE: IMMUNO OTHR DR: Dr. Damien Cabello MD Tissues: A - Stomach, NOS B - Gastric mucous membrane Procedures: H Pylori (initial) P53 (initial) KI-67 (add) PHYSICIAN & INSTITUTION [place] [address] SPECIMEN INFORMATION: Tissue Source: A ? Antral biopsy, B - Gastroesophageal junction biopsy Clinical Info: Melena and GERD Specimen Number: [id number] A & B CPT code: 27130 x2, 09115 METHODOLOGY: Deparaffinized sections of prefer/formalin-fixed tissue or PAP/DQ stained slides are incubated with monoclonal/polyclonal antibodies/oligonucleotide probes. Localization is made via biotin free immunoperoxidase method. Appropriate controls are performed and reacted as expected. Results on target cell population are indicated in the following table: RESULTS: ANTIBODY / CLONE RESULT Block A H Pylori (polyclonal) negative Block B P53 (DO-7) negative (Null pattern) Ki-67 (30-9) positive, very low These tests were developed and their performance characteristics determined by [facility]. They may not have been cleared or approved by the U.S. Food and Drug Administration. The FDA has determined that such clearance or approval is not necessary. The above immunohistochemical/dualISH markers are ordered and reviewed by the Pathologist. INTERPRETATION: A. Antral biopsy: Negative for Helicobacter pylori organisms. B. Gastroesophageal junction, biopsy: Negative for dysplasia. SJ:lilly 02/24/2023
--- NOTE | 2023-02-20 10:25 | OP.EGD_ITS ---
Patient Name: Trace Gordon Procedure Date: 02/20/2023 9:56 AM Date of : 1990 Age: 32 Procedure: Upper GI endoscopy Indications: Melena Providers: Leroy Pollock MD Referring MD: Leroy Pollock MD Medicines: Monitored Anesthesia Care Patient Profile: This is a 32 year old male. Refer to note in patient chart for documentation of history and physical. Complications: No immediate complications. Procedure: Pre-Anesthesia Assessment: - Prior to the procedure, a History and Physical was performed, and patient medications and allergies were reviewed. The patient's tolerance of previous anesthesia was also reviewed. The risks and benefits of the procedure and the sedation options and risks were discussed with the patient. All questions were answered, and informed consent was obtained. Prior Anticoagulants: The patient has taken no previous anticoagulant or antiplatelet agents. After reviewing the risks and benefits, the patient was deemed in satisfactory condition to undergo the procedure. After obtaining informed consent, the endoscope was passed under direct vision. Throughout the procedure, the patient's blood pressure, pulse, and oxygen saturations were monitored continuously. The Colonoscope was introduced through the mouth, and advanced to the third part of duodenum. The upper GI endoscopy was accomplished without difficulty. The patient tolerated the procedure well. Scope In: 10:05:43 AM Scope Out: 10:10:04 AM Total Procedure Duration Time 0 hours 4 minutes 21 seconds Findings: Mildly severe esophagitis with no bleeding was found at the gastroesophageal junction. Biopsies were taken with a cold forceps for histology. Biopsies were taken with a cold forceps in the gastric antrum for Helicobacter pylori testing. The stomach was normal. The examined duodenum was normal. Impression: - Mildly severe reflux esophagitis. Biopsied. - Normal stomach. - Normal examined duodenum. - Biopsies were taken with a cold forceps for Helicobacter pylori testing. Recommendation: - Discharge patient to home. - Resume previous diet. - Continue present medications. Procedure Code(s): --- Professional --- 04945, Esophagogastroduodenoscopy, flexible, transoral; with biopsy, single or multiple Diagnosis Code(s): --- Professional --- K21.0, Gastro-esophageal reflux disease with esophagitis K92.1, Melena (includes Hematochezia) CPT copyright 2017 [employer]. All rights reserved. The codes documented in this report are preliminary and upon travel sales consultant review may be revised to meet current compliance requirements. Leroy Pollock MD 02/20/2023 10:24:36 AM This report has been signed electronically. Number of Addenda: 0 Note Initiated On: 02/20/2023 9:56 AM
[2023-02-20 10:26] VITALS: BP 115/59; BP 116/74; BP 142/81; PULSE 71; PULSE 75; RESP 18; TEMP 37.3; O2SAT 94; O2SAT 96
--- NOTE | 2023-02-20 10:26 | OP.CCLET_ITS ---
02/20/2023 Damien Cabello [address] [place] [address] Re : Upper GI endoscopy procedure for Trace Gordon Dear Dr. Cabello This procedure was performed on Monday, February 20, 2023. My impressions and recommendations are as follows: Impressions : - Mildly severe reflux esophagitis. Biopsied. - Normal stomach. - Normal examined duodenum. - Biopsies were taken with a cold forceps for Helicobacter pylori testing. Recommendations : - Discharge patient to home. - Resume previous diet. - Continue present medications. My findings are described in the full procedure note, which is enclosed. If I can be of further assistance, please feel free to contact me at Doctor phone number(s): , Work: . Sincerely, Leroy Pollock MD 02/20/2023 10:24:36 AM This report has been signed electronically.
--- NOTE | 2023-02-20 10:28 | OP.COLON_ITS ---
Patient Name: Trace Gordon Procedure Date: 02/20/2023 10:10 AM Date of : 1990 Age: 32 Procedure: Colonoscopy Indications: Melena Providers: Leroy Pollock MD Referring MD: Leroy Pollock MD Medicines: Monitored Anesthesia Care Patient Profile: This is a 32 year old male. Refer to note in patient chart for documentation of history and physical. Last Colonoscopy: none. The patient's first colonoscopy is today. Complications: No immediate complications. Procedure: Pre-Anesthesia Assessment: - Prior to the procedure, a History and Physical was performed, and patient medications and allergies were reviewed. The patient's tolerance of previous anesthesia was also reviewed. The risks and benefits of the procedure and the sedation options and risks were discussed with the patient. All questions were answered, and informed consent was obtained. Prior Anticoagulants: The patient has taken no previous anticoagulant or antiplatelet agents. After reviewing the risks and benefits, the patient was deemed in satisfactory condition to undergo the procedure. - Prior to the procedure, a History and Physical was performed, and patient medications and allergies were reviewed. The patient's tolerance of previous anesthesia was also reviewed. The risks and benefits of the procedure and the sedation options and risks were discussed with the patient. All questions were answered, and informed consent was obtained. Prior Anticoagulants: The patient has taken no previous anticoagulant or antiplatelet agents. After reviewing the risks and benefits, the patient was deemed in satisfactory condition to undergo the procedure. After I obtained informed consent, the scope was passed under direct vision. Throughout the procedure, the patient's blood pressure, pulse, and oxygen saturations were monitored continuously. The Colonoscope was introduced through the anus and advanced to the cecum, identified by appendiceal orifice and ileocecal valve. The colonoscopy was performed with ease. The patient tolerated the procedure well. The quality of the bowel preparation was good. Scope In: 10:12:20 AM Scope Withdrawal Time 0 hours 2 minutes 49 seconds Scope Out: 10:19:37 AM Total Procedure Duration Time 0 hours 7 minutes 17 seconds Findings: The entire examined colon appeared normal on direct and retroflexion views. Impression: - The entire examined colon is normal on direct and retroflexion views. - No specimens collected. Recommendation: - Discharge patient to home. - Resume previous diet. - Continue present medications. - Repeat colonoscopy at age 50 for screening purposes. Procedure Code(s): --- Professional --- 42614, Colonoscopy, flexible; diagnostic, including collection of specimen(s) by brushing or washing, when performed (separate procedure) Diagnosis Code(s): --- Professional --- K92.1, Melena (includes Hematochezia) CPT copyright 2017 [employer]. All rights reserved. The codes documented in this report are preliminary and upon automotive upholsterer review may be revised to meet current compliance requirements. Leroy Pollock MD 02/20/2023 10:28:03 AM This report has been signed electronically. Number of Addenda: 0 Note Initiated On: 02/20/2023 10:10 AM
--- NOTE | 2023-02-20 10:29 | OP.CCLET_ITS ---
02/20/2023 Damien Cabello [address] [place] [address] Re : Colonoscopy procedure for Trace Heidi Dear Dr. Cabello This procedure was performed on Monday, February 20, 2023. My impressions and recommendations are as follows: Impressions : - The entire examined colon is normal on direct and retroflexion views. - No specimens collected. Recommendations : - Discharge patient to home. - Resume previous diet. - Continue present medications. - Repeat colonoscopy at age 50 for screening purposes. My findings are described in the full procedure note, which is enclosed. If I can be of further assistance, please feel free to contact me at Doctor phone number(s): , Work: . Sincerely, Leroy Pollock MD 02/20/2023 10:28:03 AM This report has been signed electronically.
[2023-02-20 10:35] VITALS: BP 110/54; BP 142/81; PULSE 66; RESP 18; O2SAT 97
[2023-02-20 10:39] VITALS: BP 113/67; BP 142/81; PULSE 64; RESP 18; TEMP 36.5; O2SAT 99
[2023-02-20 10:50] VITALS: BP 142/81
== END 2023-02-20 11:00 | disposition home or self-care (01) ==
LOC: EN 08:58 → AC 08:59
PROVIDERS: PCP Family Medicine; Referring Provider Family Medicine; Visit Provider Surgery
PROC: 0DJD8ZZ Inspection of Lower Intestinal Tract, Via Natural or Artificial Opening Endoscopic (ICD-10-PCS; CPT 45378; principal; 2023-02-20 10:10)
DX: K21.00 Gastro-esophageal reflux disease with esophagitis, without bleeding (principal); F17.200 Nicotine dependence, unspecified, uncomplicated; K22.70 Barrett's esophagus without dysplasia; K76.0 Fatty (change of) liver, not elsewhere classified; Z87.19 Personal history of other diseases of the digestive system; Z79.899 Other long term (current) drug therapy
CPT/HCPCS: 45378; 43239; 88305; 88313; 88341; 88342; J7120; J2405

== ENCOUNTER → 2024-10-31 | Outpatient (CLI) | payer BC, SELFPAY ==
[2024-10-31 18:41] LABS: Anion Gap 8 (5-15); BUN 8 mg/dL (7-18); BUN/Creat Ratio 12.2 RATIO (10-20); Calcium,Total 9.7 mg/dL (8.5-10.1); Chloride 106 mmol/L (98-107); Cholesterol 307 mg/dL (200); Creatinine, Serum 0.66 mg/dL (0.70-1.30); EST Glomerular Filtration Rate 147 mL/min (>60); Est Glom Filt Rate - Afr Amer 178 mL/min (>60); Glucose 79 mg/dL (74-106); High Density Lipoprotein 78 mg/dL; Sodium Level 139 mmol/L (136-145); Triglycerides 104 mg/dL; Very Low Density Lipoprotein 21 mg/dL (5-40)
== END | disposition home or self-care (01) ==
PROVIDERS: PCP Family Medicine; Referring Provider Nurse Practitioner Family; Visit Provider Nurse Practitioner Family
DX: Z13.1 Encounter for screening for diabetes mellitus (principal); Z13.220 Encounter for screening for lipoid disorders
CPT/HCPCS: 36415; 80048; 80061